=== PATIENT | female | born 2000 | race Caucasian/White ===

== ENCOUNTER 2022-08-12 12:10 | Emergency (ER) | payer OTHER, SELFPAY ==
[2022-08-12 12:41] LABS: Bilirubin Negative (Negative); Blood, Urine Negative (Negative); Clarity Clear (Clear); Glucose, Urine (Dipstick) Normal (Negative); Ketone, Urine Negative (Negative); Leukocyte Negative Leu/uL (Negative); Nitrite Negative (Negative); Protein, Urine (Dipstick) Negative (Neg-Trace); Specific Gravity, Urine 1.003 (1.002-1.036); Urobilinogen Normal mg/dL (Less than 2); pH, Urine 6.5 (5.0-9.0)
[2022-08-12 12:43] LABS: Pregnancy Test - Urine (BHCG) Negative (Negative); Pregu Control Background? CLEAR/WHITE (CLR/WHITE); Pregu Control Bar Appear? YES (CONTROL BAR); Specific Gravity 1.003 (1.002-1.036)
[2022-08-12] MEDS ORDERED: Diazepam 10 MG/2 ML SYRINGE ONE (13:30)
[2022-08-12 13:41] LABS: #Eosinphils 0.1 thou/uL (0.0-0.7); #Lymphocytes 1.2 thou/uL (1.20-3.40); #Monocytes 0.6 thou/uL (0.11-0.59); #Neutrophils 7.1 thou/uL (1.40-6.50); %Basophils 0.4 % (0.0-1.0); %Eosinophils 0.6 % (0.0-10.0); %Lymphocytes 13.2 % (28.0-48.0); %Monocytes 6.3 % (0.0-4.0); %Neutrophils 79.4 % (31.0-61.0); Hemoglobin 14.7 g/dL (12.0-16.0); Mean Corpuscular HGB CONC 33.6 g/dL (32.0-36.0); Mean Corpuscular Hemoglobin 31.3 pg (25.0-35.0); Mean Corpuscular Volume 93.1 fl (78.0-98.0); Mean Platelet Volume 8.5 fL (7.4-10.4); Platelet Count 248 10x3/uL (130-400); RBC Distribution Width 11.3 % (11.5-14.5); Red Blood Cell (RBC) Count 4.71 mill/uL (4.00-5.20)
[2022-08-12 13:56] LABS: ALT (SGPT) 12 U/L (8-55); AST (SGOT) 19 U/L (5-30); Albumin 4.5 g/dL (3.5-5.0); Alkaline Phosphatase 131 U/L (40-100); Anion Gap 11 mmol/L (10-20); BUN (Urea Nitrogen) 9 mg/dL (8.4-21.0); Bilirubin, Total 0.6 mg/dL (0.2-1.2); Calc. Creatinine Clearance 0 mL/min (70-130); Carbon Dioxide 25 mmol/L (22-29); Chloride 109 mmol/L (98-107); Estimated GFR 116; Globulin 2.8 g/dL (2.4-3.5); Glucose 100 mg/dL (70-105); Protein, Total 7.3 g/dL (6.0-8.3); Sodium 140 mmol/L (136-145)
[2022-08-12] MEDS ORDERED: Ketorolac Tromethamine 30 MG/ML VIAL ONE (14:12)
== END 2022-08-12 14:53 | disposition home or self-care (01) ==
LOC: ERS 12:10
DX: M54.50 Low back pain, unspecified (principal)
CPT/HCPCS: 36415; 80053; 81003; 81025; 85025; 96372; 99283; J1885; J3360